=== PATIENT | female | born 1955 | race African-American/Black ===

== ENCOUNTER 2016-11-17 12:48 | Emergency (ER) | payer OTHER ==
[~2016-11-17] VITALS: Ht 165.1 cm; Wt 67.1 kg
[2016-11-17 13:40] VITALS: BP 149/87
== END 2016-11-17 14:32 | disposition home or self-care (01) ==
LOC: ER 12:48 → EDBD 12:48 → ER 14:32
DX: S50.02XA Contusion of left elbow, initial encounter (principal); W19.XXXA Unspecified fall, initial encounter; Y93.01 Activity, walking, marching and hiking; Y99.8 Other external cause status; Y92.512 Supermarket, store or market as the place of occurrence of the external cause; Z88.0 Allergy status to penicillin
CPT/HCPCS: 73080

== ENCOUNTER 2016-11-30 13:50 | Emergency (ER) | payer OTHER ==
[~2016-11-30] VITALS: Ht 165.1 cm; Wt 67.1 kg
[2016-11-30 14:05] VITALS: BP 155/90
== END 2016-11-30 17:32 | disposition left against medical advice (07) ==
LOC: ER 13:50
DX: M79.602 Pain in left arm (principal); Z53.21 Procedure and treatment not carried out due to patient leaving prior to being seen by health care provider; W18.39XA Other fall on same level, initial encounter; Y93.89 Activity, other specified; Y99.8 Other external cause status; Y92.89 Other specified places as the place of occurrence of the external cause

== ENCOUNTER 2016-12-06 11:16 | Emergency (ER) | payer OTHER ==
[~2016-12-06] VITALS: Ht 165.1 cm; Wt 67.1 kg
[2016-12-06 13:57] VITALS: BP 152/109
[2016-12-06] MEDS: KETOROLAC TROMETH 60MG/2ML VIAL IM ONE (14:56)
== END 2016-12-06 15:37 | disposition home or self-care (01) ==
LOC: ER 11:16
DX: M77.9 Enthesopathy, unspecified (principal)
CPT/HCPCS: 73080; 96372; 99284; J1885

== ENCOUNTER 2017-03-19 16:32 | Inpatient (IN) | payer OTHER ==
[~2017-03-19] VITALS: Ht 152.4 cm; Wt 76.7 kg
[~2017-03-19 16:32] MED LIST: HYDR-4663 PO; LISI2.5T47 PO; PANT40TA2 PO; SUCR1TAB PO
[2017-03-19 17:13] LABS: CONDITION Y; DEFINITIVE SEE PRINTOUT; Hematocrit 28.9 % (36.0-46.0); Hemoglobin 9.1 g/dL (12.2-16.2); Mean Corpuscular Hemoglobin 23.3 pg (28.0-32.0); Mean Corpuscular Hgb Conc. 31.6 g/dL (32.0-36.0); Mean Corpuscular Volume 73.6 fL (80.0-100.0); Mean Platelet Volume 7.7 fL (6.9-10.8); Platelet Count (auto) 387 10^3/uL (140-450); SUSPECT SEE PRINTOUT; White Blood Cell 4.9 10^3/uL (4.4-10.8)
[2017-03-19 17:35] LABS: Albumin 3.4 g/dL (3.4-5.0); Alkaline Phosphatase 106 U/L (45-117); Anion Gap 9 (5-15); Aspartate Aminotransferase 17 U/L (15-37); BUN/Creatinine Ratio 8.8; Bilirubin, Total 0.6 mg/dL (0.2-1.0); Blood Urea Nitrogen 13 mg/dL (7-18); Calcium 8.2 mg/dL (8.5-10.1); Carbon Dioxide 26 mmol/L (21-32); Chloride 106 mmol/L (98-107); GFR African American 46 mL/min; GFR Non-African American 38 mL/min; Glucose 99 mg/dL (74-106); Magnesium 2.1 mg/dL (1.6-2.6); Sodium 141 mmol/L (136-145); Total Protein 6.8 g/dL (6.4-8.2)
[2017-03-19 17:39] LABS: Metamyelocytes % 0; Myelocytes % 0; Promyelocytes % 0; Reactive Lymphocytes 0
[2017-03-19 17:42] LABS: Potassium 2.8 mmol/L (3.5-5.1)
[2017-03-19] MEDS ORDERED: POTASSIUM CHL 20 Meq TABLET PO ONE ×2 (17:45→21:45)
[2017-03-19 17:58] LABS: Hypochromia Moderate; Ovalocytes FEW; Platelet Estimate Adequate; Schistocytes FEW; Tear Drop Cells FEW
[2017-03-19] MEDS ORDERED: MORPHINE SULF INJ 2 MG/ML SYRINGE 1ML ONE (20:18)
[2017-03-19] MEDS ORDERED: ONDANSETRON HCL 4 MG/2 ML VIAL ONE (20:18)
[2017-03-19] MEDS ORDERED: MORPHINE SULF INJ 2 MG/ML SYRINGE 1ML IV ONE (20:45)
[2017-03-19] MEDS ORDERED: ONDANSETRON HCL 4 MG/2 ML VIAL IV ONE (20:45)
[2017-03-19] MEDS ORDERED: PANTOPRAZOLE 40 MG TAB PO ONE ×2 (22:17→22:30)
[2017-03-19] MEDS ORDERED: ONDANSETRON HCL 4 MG/2 ML VIAL IV PRN (22:30)
[2017-03-19] MEDS ORDERED: NITROGLYCERIN 0.4 MG SL TAB SL PRN (22:30)
[2017-03-19] MEDS ORDERED: ACETAMINOPHEN 325 MG TAB PO PRN (22:30)
[2017-03-19] MEDS ORDERED: TEMAZEPAM 15 MG CAP PO PRN (22:30)
[2017-03-19] MEDS ORDERED: MORPHINE SULF INJ 2 MG/ML SYRINGE 1ML IV PRN (22:30)
[2017-03-20 00:41] VITALS: BP 114/71
[2017-03-20 05:00] VITALS: BP 102/58
[2017-03-20] MEDS: SUCRALFATE 1 GM TAB PO SCH ×4 (05:36→22:46)
[2017-03-20 06:11] LABS: Basophils # (auto) 0 uL; Basophils % (auto) 0.4 % (0.0-2.0); Eosinophils # (auto) 0.1 uL; Eosinophils % (auto) 2.6 % (0.0-7.0); Hematocrit 28.6 % (36.0-46.0); Hemoglobin 9.2 g/dL (12.2-16.2); Lymphocytes # (auto) 1.8 uL; Lymphocytes % (auto) 41.8 % (10.0-50.0); Mean Corpuscular Hemoglobin 23.6 pg (28.0-32.0); Mean Corpuscular Volume 73.7 fL (80.0-100.0); Mean Platelet Volume 7.1 fL (6.9-10.8); Monocytes # (auto) 0.3 uL; Monocytes % (auto) 7.8 % (0.0-12.0); Neutrophils # (auto) 2.1 uL; Neutrophils % (auto) 47.4 % (37.0-80.0); Nucleated Red Blood Cells % 0.1 %; Platelet Count (auto) 313 10^3/uL (140-450); Red Cell Distribution Width 18.3 % (11.8-14.3); White Blood Cell 4.4 10^3/uL (4.4-10.8)
[2017-03-20 07:15] LABS: Albumin 3.2 g/dL (3.4-5.0); Alkaline Phosphatase 103 U/L (45-117); Anion Gap 7 (5-15); Aspartate Aminotransferase 17 U/L (15-37); BUN/Creatinine Ratio 10.6; Bilirubin, Total 0.4 mg/dL (0.2-1.0); Blood Urea Nitrogen 15 mg/dL (7-18); Calcium 8.5 mg/dL (8.5-10.1); Carbon Dioxide 29 mmol/L (21-32); Chloride 107 mmol/L (98-107); GFR African American 49 mL/min; GFR Non-African American 40 mL/min; Glucose 98 mg/dL (74-106); Potassium 3.3 mmol/L (3.5-5.1); Sodium 143 mmol/L (136-145); Total Protein 6.5 g/dL (6.4-8.2)
[2017-03-20] MEDS: HYDROcodone-ACET 5/325MG TAB PO PRN (07:43)
[2017-03-20 09:00] VITALS: BP 98/55
[2017-03-20] MEDS ORDERED: HCTZ 25 MG TAB PO SCH (10:00)
[2017-03-20] MEDS ORDERED: LISINOPRIL 5 MG TAB PO SCH (10:00)
[2017-03-20] MEDS: PANTOPRAZOLE 40 MG TAB PO SCH (10:28)
[2017-03-20] MEDS: ENOXAPARIN SOD 40 MG/0.4 ML SYRINGE SC SCH (10:29)
[2017-03-20] MEDS: POTASSIUM CHL 20MEQ/100ML 100 ML IV SCH ×2 (11:51→14:11)
[2017-03-20] MEDS: SOD CHL 0.9%/ KCL 20MEQ 1,000 ML IV SCH ×2 (11:51→22:45)
[2017-03-20 13:00] VITALS: BP 102/66
[2017-03-20 17:00] VITALS: BP 129/84
[2017-03-20 22:00] VITALS: BP 112/63
[2017-03-21 05:00] VITALS: BP 136/90
[2017-03-21] MEDS: SUCRALFATE 1 GM TAB PO SCH ×2 (05:57→12:10)
[2017-03-21] MEDS: HYDROcodone-ACET 5/325MG TAB PO PRN (05:57)
[2017-03-21 06:12] LABS: CONDITION Y; DEFINITIVE SEE PRINTOUT; Hematocrit 29.8 % (36.0-46.0); Hemoglobin 9.4 g/dL (12.2-16.2); Mean Corpuscular Hemoglobin 23.5 pg (28.0-32.0); Mean Corpuscular Hgb Conc. 31.8 g/dL (32.0-36.0); Mean Corpuscular Volume 73.9 fL (80.0-100.0); Mean Platelet Volume 7.5 fL (6.9-10.8); Platelet Count (auto) 370 10^3/uL (140-450); Red Cell Distribution Width 18.7 % (11.8-14.3); SUSPECT SEE PRINTOUT; White Blood Cell 3.7 10^3/uL (4.4-10.8)
[2017-03-21 06:33] LABS: Potassium 3.9 mmol/L (3.5-5.1)
[2017-03-21 06:36] LABS: Metamyelocytes % 0; Myelocytes % 0; Promyelocytes % 0; Reactive Lymphocytes 0
[2017-03-21 06:41] LABS: BUN/Creatinine Ratio 9.8; Bilirubin, Total 0.4 mg/dL (0.2-1.0); Calcium 8.6 mg/dL (8.5-10.1)
[2017-03-21 06:42] LABS: Anisocytosis Slight; Burr Cells FEW; Hypochromia Slight; Ovalocytes FEW; Platelet Estimate Adequate
[2017-03-21] MEDS: SOD CHL 0.9%/ KCL 20MEQ 1,000 ML IV SCH (07:00)
[2017-03-21] MEDS ORDERED: ADENOSINE 64 MG in GIVE UN-DILUTED 0 ML IV ONE (10:15)
[2017-03-21 10:34] VITALS: BP 129/73
[2017-03-21] MEDS ORDERED: ALBUTEROL SULF 2.5 MG/0.5ML(0.5%) NEB SOLN ONE (10:36)
[2017-03-21] MEDS ORDERED: IPRATROPIUM BROM 0.5 MG/2.5ML INH SOL ONE (10:36)
[2017-03-21] MEDS: ENOXAPARIN SOD 40 MG/0.4 ML SYRINGE SC SCH (12:10)
[2017-03-21] MEDS: PANTOPRAZOLE 40 MG TAB PO SCH (12:10)
[2017-03-21 12:23] VITALS: BP 144/93
== END 2017-03-21 17:00 | disposition home or self-care (01) | DRG 241 ==
LOC: EDBD 16:32 → ER 16:40 → TELE 16:41 → TELE-CENTR 23:52
PROVIDERS: ADMIT Nurse Practitioner; ATTEND Internal Medicine
DX: K25.9 Gastric ulcer, unspecified as acute or chronic, without hemorrhage or perforation (principal); N17.0 Acute kidney failure with tubular necrosis; R07.89 Other chest pain; I25.2 Old myocardial infarction; N18.3 Chronic kidney disease, stage 3 (moderate); I12.9 Hypertensive chronic kidney disease with stage 1 through stage 4 chronic kidney disease, or unspecified chronic kidney disease; D50.9 Iron deficiency anemia, unspecified; E87.6 Hypokalemia; J44.9 Chronic obstructive pulmonary disease, unspecified; E86.0 Dehydration; I70.0 Atherosclerosis of aorta; G89.29 Other chronic pain; D63.8 Anemia in other chronic diseases classified elsewhere; I08.0 Rheumatic disorders of both mitral and aortic valves; Z87.11 Personal history of peptic ulcer disease; Z98.84 Bariatric surgery status; Z88.0 Allergy status to penicillin; Z87.891 Personal history of nicotine dependence; Z82.49 Family history of ischemic heart disease and other diseases of the circulatory system; Z82.5 Family history of asthma and other chronic lower respiratory diseases; Z90.49 Acquired absence of other specified parts of digestive tract
CPT/HCPCS: 36415; 71020; 80053; 83735; 84484; 85007; 85025; 85027; 93005; 93017; 94640; 94761; 96374; 96375; J0153; J2405; J3480